=== PATIENT | female | born 1965 | race Caucasian/White ===

== ENCOUNTER 2016-12-19 07:37 | Outpatient (CLI) | payer BC | END 2016-12-19 07:38 | disposition home or self-care (01) | LOC: CONVCARE 07:37 | PROVIDERS: ATTEND Orthopaedic Surgery | DX: Z47.89 Encounter for other orthopedic aftercare (principal); Z98.1 Arthrodesis status | CPT/HCPCS: 73140 ==

== ENCOUNTER 2017-12-08 08:19 | Day surgery (SDC) | payer BC ==
[2017-12-08] MEDS ORDERED: PROPOFOL 10 MG/ML EMU IV ONE (10:13)
[2017-12-08 10:45] VITALS: BP 130/65; PULSE 53; RESP 12; TEMP 98.3; O2SAT 100
== END 2017-12-08 11:09 | disposition home or self-care (01) ==
LOC: SURG 08:19
PROVIDERS: ATTEND Surgery
DX: Z12.11 Encounter for screening for malignant neoplasm of colon (principal); Z80.0 Family history of malignant neoplasm of digestive organs; K63.5 Polyp of colon
CPT/HCPCS: 99001; J2001; J2704